=== PATIENT | female | born 1990 | race Caucasian/White ===

== ENCOUNTER 2019-05-13 21:11 | Emergency (ER) | payer SELFPAY ==
[~2019-05-13] VITALS: Ht 167.6 cm; Wt 65.9 kg
[2019-05-13 21:30] VITALS: TEMP 98.4
[2019-05-13] MEDS ORDERED: SEASONIQUE1 TAB PO (22:24)
[2019-05-13] MEDS ORDERED: ADDERALL20 MG PO (22:24)
[2019-05-13 23:19] VITALS: BP 121/79; PULSE 70
== END 2019-05-13 23:23 | disposition home or self-care (01) ==
LOC: COL.ER 21:11
DX: S01.81XA Laceration without foreign body of other part of head, initial encounter (principal); F90.9 Attention-deficit hyperactivity disorder, unspecified type; W22.8XXA Striking against or struck by other objects, initial encounter; Y92.59 Other trade areas as the place of occurrence of the external cause